=== PATIENT | male | born 1945 | race Caucasian/White ===

== ENCOUNTER 2017-09-07 08:00 | Outpatient (RCR) | payer MEDICARE, OTHER ==
[2017-09-02 09:34] VITALS: BP 117/74; PULSE 65; TEMP 98.1
[2017-09-02 09:37] LABS: HEMATOCRIT 40.6 % (42.0-52.0); HEMOGLOBIN 13.3 g/dl (13.5-18.0); MEAN CELL VOLUME 93 fl (80.0-100.0); MEAN CORPUSCULAR HEMOGLOBIN 30 pg (27.0-31.0); MEAN CORPUSCULAR HGB CONC 33 g/dl (33.0-37.0); MEAN PLATELET VOLUME 8.5 fl (7.4-10.4); PLATELET COUNT 366 K/mm3 (130-400); RED BLOOD COUNT 4.39 M/mm3 (4.20-5.60); REDCELL DISTRIBUTION WIDTH-CV 14.9 % (11.5-14.5)
[2017-09-02 09:47] LABS: BILIRUBIN,TOTAL 0.5 mg/dL (0.0-1.0); CALCIUM 9.2 mg/dL (8.4-10.2); CREATININE, serum 0.91 mg/dL (0.66-1.25); POTASSIUM 3.6 mmol/L (3.4-5.0); TOTAL PROTEIN 6.4 gm/dL (6.4-8.2)
[2017-09-03 09:50] VITALS: BP 108/76; PULSE 64; TEMP 98.1
[2017-09-04 08:58] VITALS: BP 117/76; PULSE 81; TEMP 98.5
[2017-09-05 09:21] VITALS: BP 139/80; PULSE 72; TEMP 98.4
[2017-09-06 08:00] VITALS: BP 102/68; PULSE 94; TEMP 98.1
[~2017-09-07] VITALS: Ht 167.6 cm; Wt 135.0 kg
[~2017-09-07 08:00] MED LIST: AMLODIPINE-BENAZEPRI; ASPIRIN E.C. 8181 MG PO; CHONDROITIN SU400 MG PO; CINNAMON500 MG PO; COREG 25MG25 MG/TAB PO; CRESTOR5 MG PO; DIFLUCAN200 MG PO; FARXIGA5 PO; FISH OIL 1000MG1 CAP PO; FLAX SEED OIL1000 MG PO; GLUCOPHAGE500 MG/TAB PO; GLUCOSAMINE CHO1 CAP PO; GLUCOSAMINE PO; GLUMETZA500 MG PO; HCTZ 25MG TAB25 MG PO; INVANZ INJ1 G/VIAL IV; LEVSIN0.125 M1 PO; LOTREL 10 MG-401 CAP PO; NEXIUM 20MG20 MG PO; NEXIUM 40MG40 MG PO; OCUVITE1 TA1 PO; OMEGA 31000 MG PO; PAMELOR 10MG10 MG PO; PROBIOTIC FORMU1 CAP PO; VITAMIN D 1001000 IU PO; VITAMIN D31000 IU PO; VITAMIN E1000 U/CAP PO; WELCHOL 625MG625 MG PO; XARELTO20 MG PO
== END 2017-09-07 09:12 | disposition home or self-care (01) ==
LOC: EUO 08:00
PROVIDERS: Family Medicine
DX: L03.90 Cellulitis, unspecified (principal); B99.9 Unspecified infectious disease
CPT/HCPCS: J1335

== ENCOUNTER → 2019-04-12 | Outpatient (CLI) | payer MEDICARE, OTHER ==
[~2019-04-12] MED LIST changes: +ALDACTONE 25MG25 M1 PO; +PAMELOR 25MG25 MG PO; +PROTONIX 40MG T40 MG PO
== END ==
LOC: COL.RAD 08:36
DX: R14.0 Abdominal distension (gaseous) (principal); R10.13 Epigastric pain

== ENCOUNTER → 2019-04-21 | Outpatient (CLI) | payer MEDICARE, OTHER | LOC: COL.RAD 08:16 | DX: R10.9 Unspecified abdominal pain (principal); R14.0 Abdominal distension (gaseous); R10.13 Epigastric pain; K63.89 Other specified diseases of intestine | CPT/HCPCS: A9541 ==

== ENCOUNTER 2021-11-12 22:19 | Emergency (ER) | payer MEDICARE ==
[~2021-11-12] VITALS: Ht 170.2 cm; Wt 131.8 kg
[2021-11-12 22:55] VITALS: TEMP 97.5
[2021-11-13 00:19] LABS: BASO % 0.2 % (0.0-2.0); EOS # 0.1 K/mm3 (0.0-0.7); EOS % 1.2 % (0.0-4.0); GRAN # 5.9 K/mm3 (1.4-6.5); GRAN % 70.6 % (42.2-75.2); HEMATOCRIT 45.4 % (42.0-52.0); HEMOGLOBIN 15.1 g/dl (13.5-18.0); LYMPH # 1.5 K/mm3 (1.2-3.4); LYMPH % 17.7 % (20.0-51.0); MEAN CELL VOLUME 91 fl (80.0-100.0); MEAN CORPUSCULAR HEMOGLOBIN 30 pg (27-31); MEAN CORPUSCULAR HGB CONC 33 g/dl (33.0-37.0); MEAN PLATELET VOLUME 8.6 fl (7.4-10.4); MONO # 0.8 K/mm3 (0.1-0.6); MONO % 10.1 % (1.7-9.3); PLATELET COUNT 299 K/mm3 (130-400); RED BLOOD COUNT 4.98 M/mm3 (4.20-5.60); REDCELL DISTRIBUTION WIDTH-CV 12.8 % (11.5-14.5)
[2021-11-13 00:28] LABS: PROTHROMBIN TIME 11.5 SECONDS (9.7-12.8)
[2021-11-13 00:30] VITALS: BP 138/98; PULSE 78
[2021-11-13 00:30] LABS: PARTIAL THROMBOPLASTIN TIME 35.1 SECONDS (26.0-37.0)
[2021-11-13 00:33] LABS: COLLECTION METHOD IN
[2021-11-13 00:38] LABS: URINE APPEARANCE Clear (CLEAR/HAZY); URINE BLOOD Negative (NEGATIVE); URINE COLOR Yellow (YELLOW); URINE GLUCOSE 3+ (NEGATIVE); URINE KETONE Negative (NEGATIVE); URINE NITRATE Negative (NEGATIVE); URINE PROTEIN(semi-quant) Negative (NEGATIVE); URINE UROBILINOGEN 0.2 E.U/dL (0.2-1.0)
[2021-11-13 00:38] LABS: ALANINE AMINOTRANSFERASE 32 U/L (0-55); ALKALINE PHOSPHATASE 39 U/L (40-150); ANION GAP 14 mmol/L (7-16); AST,SGOT 21 U/L (5-34); BILIRUBIN,TOTAL 0.5 mg/dL (0.2-1.2); BLOOD UREA NITROGEN 24 mg/dL (8-26); CALCIUM 10.1 mg/dL (8.4-10.2); CARBON DIOXIDE 23 mmol/L (23-31); CHLORIDE 99 mmol/L (98-107); CREATININE, serum 1.61 mg/dL (0.72-1.25); GLUCOSE 130 mg/dL (70-99); POTASSIUM 5.6 mmol/L (3.5-4.5); SODIUM 136 mmol/L (136-145); TOTAL PROTEIN 7.8 gm/dL (6.2-8.1)
[2021-11-13 00:42] LABS: MUCOUS Present (NOT PRESENT); SQUAMOUS EPITHELIAL 0-2 /hpf (0-10); URINE BACTERIA None Seen /hpf (NONE SEEN); URINE RBC 0-2 /hpf (0-2)
[2021-11-13 00:44] LABS: TROPONIN-I < 0.010 ng/mL (0.00-0.033)
== END 2021-11-13 00:50 | disposition short-term general hospital (02) ==
LOC: COL.ER 22:19
PROVIDERS: Emergency Medicine
DX: I61.8 Other nontraumatic intracerebral hemorrhage (principal); G93.5 Compression of brain; Z20.822 Contact with and (suspected) exposure to COVID-19
CPT/HCPCS: J1100; J1953